=== PATIENT | male | born 1935 | race Caucasian/White ===

== ENCOUNTER → 2016-11-25 | Outpatient (CLI) | payer MEDICARE ==
--- NOTE | 2016-11-25 14:07 | US ---
EXAM DESCRIPTION: Venous,Lower Extremity LT CLINICAL HISTORY: Left lower LIMB EDEMA COMPARISON: None Available. TECHNIQUE: Left lower extremity venous grayscale, spectral, and color Doppler sonographic images. FINDINGS: There is no DVT identified. There is normal color flow observed with good flow augmentation. All deep veins compress normally. IMPRESSION: Negative for DVT Electronically signed by: Jerel Ceja MD 11/25/2016 2:06 PM CDT
== END | disposition home or self-care (01) ==
LOC: US 13:27
PROVIDERS: ATTEND Family Medicine
DX: R60.0 Localized edema (principal)

== ENCOUNTER → 2017-03-24 | Outpatient (CLI) | payer MEDICARE | END | disposition home or self-care (01) | LOC: GMAM 10:56 | PROVIDERS: ATTEND Family Medicine | DX: Z12.5 Encounter for screening for malignant neoplasm of prostate (principal) ==

== ENCOUNTER → 2017-07-14 | Outpatient (CLI) | payer MEDICARE ==
--- NOTE | 2017-07-14 21:06 | US ---
PROCEDURE: Venous,Lower Extremity RT CLINICAL HISTORY and INDICATION: Right foot edema COMPARISON: None. TECHNIQUE: Blanton scale imaging with duplex interrogation of the right lower extremity venous system was performed and multiple static images were obtained. FINDINGS: Utilizing compression and augmentation, there is no deep venous thrombus in the common femoral, superficial femoral or popliteal veins. The posterior tibial and deep peroneal veins are patent and compressible. . The greater saphenous vein at the saphenofemoral junction is patent and compressible. There is no visualization of any subcutaneous fluid collections. There is no visualization of any fluid collections in the right popliteal fossa. There is no evidence of reactive or pathological lymphadenopathy in the evaluated right lower extremity. IMPRESSION: No deep venous thrombosis of the right lower extremity. Location of Interpretation: [id number] Electronically signed by: Angus Lincoln MD 07/14/2017 9:05 PM [facility] Workstation: [id number]
--- NOTE | 2017-07-16 08:02 | CT ---
EXAM DESCRIPTION: Chest w/o Contrast CLINICAL HISTORY: 82 years Male, COPD COMPARISON: CT of the thorax June 03, 2016. TECHNIQUE: Noncontrast multidetector CT imaging of the thorax was performed. Multiplanar reconstructions were generated. This exam was performed according to our departmental dose-optimization program which includes automated exposure control, adjustment of the mA and/or kV according to patient size and/or use of iterative reconstruction technique. FINDINGS: Lower neck soft tissues are stable in appearance. Trachea and proximal bronchi are patent. No endobronchial lesions are present. Advanced paraseptal emphysema is apical predominant is seen with stable pleural scarring right apex. More confluent focus of parenchymal consolidation is seen within the anterior basilar segment of the left lower lobe adjacent to the major fissure there is retraction of the major fissure suggesting a component of volume loss/atelectasis. Traversing vessel is seen within this opacity. This is slightly progressed from the June 03, 2016 comparison. Occasional foci of groundglass attenuation seen throughout the lungs bilaterally. Suspect subclinical areas of inflammation. Chronic atelectasis seen near the lingular segments of the left upper lobe along the major fissure. 5 mm pulmonary nodule superior segment right lower lobe is stable in appearance and statistically benign. Heart size is normal. Extensive atherosclerotic disease seen throughout the coronary vasculature. Great vessels are normal in caliber. Visualized structures of the upper abdomen are stable in appearance. IMPRESSION: Area of probable scar seen within the anterior basilar segment left lower lobe. This area is slightly more conspicuous/solid on this one year follow-up study. Consider PET CT for further characterization. Advanced paraseptal emphysema Coronary vascular disease. Electronically signed by: Robert Hutchinson MD 07/16/2017 8:01 AM [facility]
== END | disposition home or self-care (01) ==
LOC: CT 14:40
PROVIDERS: ATTEND Family Medicine
DX: J44.9 Chronic obstructive pulmonary disease, unspecified (principal); R60.9 Edema, unspecified; E11.9 Type 2 diabetes mellitus without complications; R91.1 Solitary pulmonary nodule; I25.10 Atherosclerotic heart disease of native coronary artery without angina pectoris